=== PATIENT | male | born 1940 | race Caucasian/White ===

== ENCOUNTER 2019-04-14 16:09 | Inpatient (IN) ==
[2019-04-14] MEDS ORDERED: ACETAMINOPHEN 500 MG TABLET PO STA (16:41)
[2019-04-14] MEDS ORDERED: ALBUTEROL/IPRATROPIUM 3 ML NEB RESP TX STA (16:41)
[2019-04-14 17:22] LABS: Basophils % 0.1 % (0.0-0.8); Eosinophils # 0.1 10*3/uL (0.0-0.87); Eosinophils % 0.9 % (0.00-10.9); Hematocrit 40.9 VOL% (42.0-52.0); Immature Granulocytes % 0.4 %; Immature Granulocytes Absolute 0.05 #; Lymphocytes # 0.2 10*3/uL (1.4-4.0); Lymphocytes % 1.3 % (21.2-54.2); Mean Corpuscular HGB Conc 31.8 GM/DL (32-36); Mean Corpuscular Volume 85.2 FL (87-102); Mean Platelet Volume 12.2 FL (9.6-12.0); Monocytes % 4.1 % (1.7-12.7); Neutrophils % 93.2 % (38.7-73.9); Platelet Count 105 T/CUMM (130-400); Red Cell Distribution Width 14.6 % (9.3-17.3); White Blood Count 12.7 T/CUMM (4-12)
[2019-04-14 17:38] LABS: Albumin 3.5 G/DL (3.4-5.0); Bilirubin,Total 0.6 MG/DL (0.2-1.0); Calcium 8.3 MG/DL (8.5-10.1); Osmolality,Calculated 293.7 MOS/KG (273-304); Total Protein 6.7 G/DL (6.4-8.3)
[2019-04-14 19:22] LABS: Eosinophils 1 % (0-10); Lymphocytes 2 % (20-55); Platelet Estimate Adequate; Segmented Neutrophils 96 % (50-85); Total Cells Counted 100
[2019-04-14 19:23] LABS: Anisocytosis 1+; Hypochromasia 2+; Microcytosis 1+; Ovalocytes 1+; Poikilocytosis Slight
[2019-04-14 20:14] LABS: Apearance,Urine CLOUDY (Clear); Bilirubin,Urine Negative (Negative); Blood, Urine Negative (Negative); Glucose,Urine (UA) Negative (Negative); Hyaline Casts,Urine 12 /LPF (0-3); Ketones,Urine Negative (Negative); Mucus,Urine Occasional /LPF (Occasional); Nitrite,Urine Negative (Negative); Protein,Urine 100 MG/DL; RBC,Urine 3 /HPF (0-4); Squamous Epithelial Cell,Urine Occasional /HPF (0-10); Urine Specific Gravity 1.018 (1.001-1.035); WBC,Urine 28 /HPF (0-6)
[2019-04-14 20:15] LABS: Urine Color Yellow (Yellow)
[2019-04-14] MEDS ORDERED: cefTRIAXone 1,000 MG in SODIUM CHLORIDE 0.9% 100 ML IV STA (20:29)
[2019-04-14] MEDS ORDERED: LEVOFLOXACIN INJ 500 MG in PREMIX 1 EACH IV STA (20:30)
[2019-04-14] MEDS ORDERED: ONDANSETRON 4 MG/2 ML VIAL IV PRN (21:01)
[2019-04-14] MEDS ORDERED: NICOTINE 21 MG/24 HR PATCH TRANSDERM PRN (21:01)
[2019-04-14] MEDS: SODIUM CHLORIDE 0.9% 1,000 ML IV SCH (21:39)
[2019-04-15] MEDS: metroNIDAZOLE INJ 500 MG in PREMIX 1 EACH IV SCH ×3 (01:20→22:28)
[2019-04-15] MEDS: ALBUTEROL/IPRATROPIUM 3 ML NEB RESP TX SCH ×4 (01:54→19:26)
[2019-04-15] MEDS: AZITHROMYCIN INJ 500 MG in SODIUM CHLORIDE 0.9% 250 ML IV SCH ×2 (02:19→21:39)
[2019-04-15] MEDS: ACETAMINOPHEN 325 MG TABLET PO PRN ×2 (02:24→15:20)
[2019-04-15] MEDS: SODIUM CHLORIDE 0.9% 1,000 ML IV SCH ×2 (05:48→15:31)
[2019-04-15 05:59] LABS: Albumin 2.7 G/DL (3.4-5.0); Bilirubin,Total 1.1 MG/DL (0.2-1.0); Calcium 7.9 MG/DL (8.5-10.1); Osmolality,Calculated 295.7 MOS/KG (273-304); Total Protein 5.8 G/DL (6.4-8.3)
[2019-04-15] MEDS ORDERED: Fluticasone Furoate-Vilanterol [Breo Ellipta] 1 inh INH SCH (09:00)
[2019-04-15] MEDS: MAGNESIUM CHLORIDE 64 MG TABLET PO SCH ×2 (09:15→21:41)
[2019-04-15] MEDS: cefTRIAXone 1,000 MG in SYRINGE 1 EACH IV SCH (20:55)
[2019-04-15] MEDS ORDERED: ALPRAZolam 0.5 MG TABLET PO ONE (21:14)
[2019-04-15] MEDS ORDERED: LEVOFLOXACIN INJ 500 MG in PREMIX 1 EACH IV SCH (21:30)
[2019-04-16] MEDS: ALBUTEROL/IPRATROPIUM 3 ML NEB RESP TX SCH ×4 (00:29→20:40)
[2019-04-16 05:34] LABS: Basophils % 0.1 % (0.0-0.8); Eosinophils # 0.1 10*3/uL (0.0-0.87); Eosinophils % 0.7 % (0.00-10.9); Hematocrit 34.1 VOL% (42.0-52.0); Hemoglobin 10.7 GM/DL (14.0-18.0); Immature Granulocytes % 0.4 %; Immature Granulocytes Absolute 0.04 #; Lymphocytes # 0.9 10*3/uL (1.4-4.0); Lymphocytes % 9.6 % (21.2-54.2); Mean Corpuscular HGB Conc 31.4 GM/DL (32-36); Mean Corpuscular Volume 86.1 FL (87-102); Mean Platelet Volume 13.5 FL (9.6-12.0); Monocytes % 9.8 % (1.7-12.7); Neutrophils % 79.4 % (38.7-73.9); Platelet Count 82 T/CUMM (130-400); Red Blood Count 3.96 MC/CUMM (3.8-5.5); White Blood Count 9.6 T/CUMM (4-12)
[2019-04-16] MEDS ORDERED: ALBUTEROL 2.5 MG/3 ML NEB RESP TX PRN (05:39)
[2019-04-16 05:52] LABS: Osmolality,Calculated 290.7 MOS/KG (273-304)
[2019-04-16 06:01] LABS: Hypochromasia Slight; Platelet Estimate Decreased
[2019-04-16] MEDS: methylPREDNISolone SOD SUC 125 MG/2 ML VIAL IV SCH ×3 (09:26→21:51)
[2019-04-16] MEDS: MAGNESIUM CHLORIDE 64 MG TABLET PO SCH ×2 (09:26→21:50)
[2019-04-16] MEDS: SODIUM CHLORIDE 0.9% 1,000 ML IV SCH (09:26)
[2019-04-16] MEDS ORDERED: ALBUTEROL/IPRATROPIUM 3 ML NEB RESP TX PRN (10:44)
[2019-04-16] MEDS ORDERED: ALBUTEROL/IPRATROPIUM 3 ML NEB RESP TX SCH (11:00)
[2019-04-16 11:24] LABS: % Iron Saturation 7.9 % (18-50)
[2019-04-16 11:29] LABS: Folate 19.7 NG/ML (5.4-24.0)
[2019-04-16] MEDS: CLINDAMYCIN INJ 300 MG in PREMIX 1 EACH IV SCH ×2 (13:00→18:51)
[2019-04-16] MEDS: BENZONATATE 100 MG CAPSULE PO SCH ×2 (15:17→21:51)
[2019-04-16] MEDS: cefTRIAXone 1,000 MG in SYRINGE 1 EACH IV SCH (20:58)
[2019-04-16] MEDS: AZITHROMYCIN INJ 500 MG in SODIUM CHLORIDE 0.9% 250 ML IV SCH (21:59)
[2019-04-17] MEDS: CLINDAMYCIN INJ 300 MG in PREMIX 1 EACH IV SCH ×4 (01:04→18:16)
[2019-04-17] MEDS: ALBUTEROL/IPRATROPIUM 3 ML NEB RESP TX SCH ×4 (02:33→19:16)
[2019-04-17 05:39] LABS: Hematocrit 36.5 VOL% (42.0-52.0); Hemoglobin 11.8 GM/DL (14.0-18.0); Immature Granulocytes % 0.5 %; Immature Granulocytes Absolute 0.04 #; Lymphocytes # 0.4 10*3/uL (1.4-4.0); Lymphocytes % 5.6 % (21.2-54.2); Mean Corpuscular HGB Conc 32.3 GM/DL (32-36); Mean Corpuscular Volume 83.5 FL (87-102); Mean Platelet Volume 13.8 FL (9.6-12.0); Monocytes % 2.3 % (1.7-12.7); Neutrophils % 91.6 % (38.7-73.9); Platelet Count 95 T/CUMM (130-400); Red Blood Count 4.37 MC/CUMM (3.8-5.5); Red Cell Distribution Width 14.8 % (9.3-17.3); White Blood Count 7.5 T/CUMM (4-12)
[2019-04-17 06:01] LABS: Calcium 8.7 MG/DL (8.5-10.1); Osmolality,Calculated 288.3 MOS/KG (273-304)
[2019-04-17 06:27] LABS: Albumin 2.7 G/DL (3.4-5.0); Bilirubin,Total 0.4 MG/DL (0.2-1.0); Calcium 8.6 MG/DL (8.5-10.1); Osmolality,Calculated 284.4 MOS/KG (273-304); Total Protein 6.1 G/DL (6.4-8.3)
[2019-04-17 06:45] LABS: Lymphocytes 2 % (20-55); Platelet Estimate Decreased; Polychromasia Few; Segmented Neutrophils 94 % (50-85); Total Cells Counted 100
[2019-04-17] MEDS ORDERED: POLYETHYLENE GLYCOL POWDER 17 GM PACK PO PRN (08:35)
[2019-04-17] MEDS ORDERED: PANTOPRAZOLE 40 MG TABLET PO SCH (09:00)
[2019-04-17] MEDS: ENALAPRIL 5 MG TABLET PO SCH (09:14)
[2019-04-17] MEDS: FUROSEMIDE 40 MG TABLET PO SCH (09:14)
[2019-04-17] MEDS: MAGNESIUM CHLORIDE 64 MG TABLET PO SCH ×2 (09:14→20:45)
[2019-04-17] MEDS: BENZONATATE 100 MG CAPSULE PO SCH ×3 (09:14→20:44)
[2019-04-17] MEDS: carvediloL 12.5 MG TABLET PO SCH ×2 (09:24→20:44)
[2019-04-17] MEDS: methylPREDNISolone SOD SUC 125 MG/2 ML VIAL IV SCH ×3 (09:28→20:43)
[2019-04-17] MEDS ORDERED: POLYETHYLENE GLYCOL POWDER 17 GM PACK PO SCH (11:30)
[2019-04-17] MEDS: FERROUS SULFATE 325 MG TABLET PO SCH ×2 (11:49→20:45)
[2019-04-17] MEDS: AZITHROMYCIN INJ 500 MG in SODIUM CHLORIDE 0.9% 250 ML IV SCH (20:43)
[2019-04-17] MEDS: cefTRIAXone 1,000 MG in SYRINGE 1 EACH IV SCH (20:43)
[2019-04-17] MEDS: ALPRAZolam 0.5 MG TABLET PO SCH (20:44)
[2019-04-17] MEDS: FEXOFENADINE 180 MG TABLET PO SCH (20:45)
[2019-04-18] MEDS: CLINDAMYCIN INJ 300 MG in PREMIX 1 EACH IV SCH ×5 (00:04→22:30)
[2019-04-18] MEDS: ALBUTEROL/IPRATROPIUM 3 ML NEB RESP TX SCH ×4 (00:40→21:22)
[2019-04-18 06:54] LABS: Hematocrit 34.4 VOL% (42.0-52.0); Hemoglobin 11.4 GM/DL (14.0-18.0); Immature Granulocytes % 0.3 %; Immature Granulocytes Absolute 0.02 #; Lymphocytes # 0.5 10*3/uL (1.4-4.0); Lymphocytes % 7.1 % (21.2-54.2); Mean Corpuscular HGB Conc 33.1 GM/DL (32-36); Mean Corpuscular Volume 82.7 FL (87-102); Mean Platelet Volume 13.4 FL (9.6-12.0); Monocytes % 3.9 % (1.7-12.7); Neutrophils % 88.7 % (38.7-73.9); Platelet Count 105 T/CUMM (130-400); Red Blood Count 4.16 MC/CUMM (3.8-5.5); Red Cell Distribution Width 14.7 % (9.3-17.3); White Blood Count 6.7 T/CUMM (4-12)
[2019-04-18 07:12] LABS: Calcium 8.4 MG/DL (8.5-10.1); Osmolality,Calculated 291.1 MOS/KG (273-304)
[2019-04-18] MEDS: ENALAPRIL 5 MG TABLET PO SCH (08:22)
[2019-04-18] MEDS: FEXOFENADINE 180 MG TABLET PO SCH (08:22)
[2019-04-18] MEDS: FUROSEMIDE 40 MG TABLET PO SCH (08:22)
[2019-04-18] MEDS: MAGNESIUM CHLORIDE 64 MG TABLET PO SCH ×2 (08:22→20:48)
[2019-04-18] MEDS: DEXILANT PO SCH (08:22)
[2019-04-18] MEDS: methylPREDNISolone SOD SUC 125 MG/2 ML VIAL IV SCH ×3 (08:23→20:47)
[2019-04-18] MEDS: carvediloL 12.5 MG TABLET PO SCH ×2 (08:23→20:49)
[2019-04-18] MEDS: BENZONATATE 100 MG CAPSULE PO SCH ×3 (08:23→20:48)
[2019-04-18] MEDS: FERROUS SULFATE 325 MG TABLET PO SCH ×2 (08:23→20:50)
[2019-04-18] MEDS: FLUCONAZOLE INJ 100 MG in IV BAG 1 EACH IV SCH (13:23)
[2019-04-18] MEDS: POLYETHYLENE GLYCOL POWDER 17 GM PACK PO SCH (20:47)
[2019-04-18] MEDS: cefTRIAXone 1,000 MG in SYRINGE 1 EACH IV SCH (20:47)
[2019-04-18] MEDS: AZITHROMYCIN INJ 500 MG in SODIUM CHLORIDE 0.9% 250 ML IV SCH (20:48)
[2019-04-18] MEDS: ALPRAZolam 0.5 MG TABLET PO SCH (20:48)
[2019-04-19] MEDS: ALBUTEROL/IPRATROPIUM 3 ML NEB RESP TX SCH ×3 (00:53→12:30)
[2019-04-19] MEDS: CLINDAMYCIN INJ 300 MG in PREMIX 1 EACH IV SCH ×4 (04:01→22:50)
[2019-04-19 06:51] LABS: Hematocrit 34.8 VOL% (42.0-52.0); Hemoglobin 11.4 GM/DL (14.0-18.0); Immature Granulocytes % 0.5 %; Immature Granulocytes Absolute 0.03 #; Lymphocytes # 0.4 10*3/uL (1.4-4.0); Lymphocytes % 7.6 % (21.2-54.2); Mean Corpuscular HGB Conc 32.8 GM/DL (32-36); Mean Corpuscular Volume 82.5 FL (87-102); Mean Platelet Volume 12.3 FL (9.6-12.0); Monocytes % 4.4 % (1.7-12.7); Neutrophils % 87.5 % (38.7-73.9); Platelet Count 110 T/CUMM (130-400); Red Blood Count 4.22 MC/CUMM (3.8-5.5); Red Cell Distribution Width 14.5 % (9.3-17.3); White Blood Count 5.7 T/CUMM (4-12)
[2019-04-19] MEDS: FERROUS SULFATE 325 MG TABLET PO SCH ×2 (09:01→21:01)
[2019-04-19] MEDS: BENZONATATE 100 MG CAPSULE PO SCH ×3 (09:01→21:02)
[2019-04-19] MEDS: FEXOFENADINE 180 MG TABLET PO SCH (09:01)
[2019-04-19] MEDS: methylPREDNISolone SOD SUC 125 MG/2 ML VIAL IV SCH ×3 (09:01→20:59)
[2019-04-19] MEDS: DEXILANT PO SCH (09:01)
[2019-04-19] MEDS: carvediloL 12.5 MG TABLET PO SCH ×2 (09:01→21:01)
[2019-04-19] MEDS: FUROSEMIDE 40 MG TABLET PO SCH (09:01)
[2019-04-19] MEDS: ENALAPRIL 5 MG TABLET PO SCH (09:01)
[2019-04-19] MEDS: MAGNESIUM CHLORIDE 64 MG TABLET PO SCH ×2 (09:01→21:00)
[2019-04-19] MEDS: FLUCONAZOLE INJ 100 MG in IV BAG 1 EACH IV SCH (13:02)
[2019-04-19] MEDS: cefTRIAXone 1,000 MG in SYRINGE 1 EACH IV SCH (20:59)
[2019-04-19] MEDS: POLYETHYLENE GLYCOL POWDER 17 GM PACK PO SCH (20:59)
[2019-04-19] MEDS: AZITHROMYCIN INJ 500 MG in SODIUM CHLORIDE 0.9% 250 ML IV SCH (21:00)
[2019-04-19] MEDS: ALPRAZolam 0.5 MG TABLET PO SCH (21:00)
[2019-04-20] MEDS: ALBUTEROL/IPRATROPIUM 3 ML NEB RESP TX SCH ×5 (01:39→19:21)
[2019-04-20] MEDS: CLINDAMYCIN INJ 300 MG in PREMIX 1 EACH IV SCH ×4 (03:15→23:31)
[2019-04-20 05:37] LABS: Basophils % 0.2 % (0.0-0.8); Hematocrit 35.3 VOL% (42.0-52.0); Hemoglobin 11.5 GM/DL (14.0-18.0); Immature Granulocytes % 0.6 %; Immature Granulocytes Absolute 0.03 #; Lymphocytes # 0.4 10*3/uL (1.4-4.0); Lymphocytes % 7.1 % (21.2-54.2); Mean Corpuscular HGB Conc 32.6 GM/DL (32-36); Mean Corpuscular Volume 82.1 FL (87-102); Mean Platelet Volume 12.6 FL (9.6-12.0); Monocytes % 4.3 % (1.7-12.7); Neutrophils % 87.8 % (38.7-73.9); Platelet Count 115 T/CUMM (130-400); Red Cell Distribution Width 14.5 % (9.3-17.3); White Blood Count 4.9 T/CUMM (4-12)
[2019-04-20 05:59] LABS: Calcium 7.7 MG/DL (8.5-10.1); Osmolality,Calculated 293.3 MOS/KG (273-304)
[2019-04-20] MEDS: DEXILANT PO SCH (08:02)
[2019-04-20] MEDS: FERROUS SULFATE 325 MG TABLET PO SCH ×2 (10:07→20:58)
[2019-04-20] MEDS: carvediloL 12.5 MG TABLET PO SCH ×2 (10:07→20:59)
[2019-04-20] MEDS: FEXOFENADINE 180 MG TABLET PO SCH (10:07)
[2019-04-20] MEDS: FUROSEMIDE 40 MG TABLET PO SCH (10:07)
[2019-04-20] MEDS: BENZONATATE 100 MG CAPSULE PO SCH ×3 (10:08→20:57)
[2019-04-20] MEDS: ENALAPRIL 5 MG TABLET PO SCH (10:08)
[2019-04-20] MEDS: MAGNESIUM CHLORIDE 64 MG TABLET PO SCH ×2 (10:08→20:58)
[2019-04-20] MEDS: methylPREDNISolone SOD SUC 125 MG/2 ML VIAL IV SCH ×3 (11:30→20:56)
[2019-04-20] MEDS: FLUCONAZOLE INJ 100 MG in IV BAG 1 EACH IV SCH (13:23)
[2019-04-20] MEDS ORDERED: POTASSIUM CHLORIDE 20 MEQ TABLET PO PRN (13:45)
[2019-04-20] MEDS: cefTRIAXone 1,000 MG in SYRINGE 1 EACH IV SCH (20:56)
[2019-04-20] MEDS: AZITHROMYCIN INJ 500 MG in SODIUM CHLORIDE 0.9% 250 ML IV SCH (20:56)
[2019-04-20] MEDS: POLYETHYLENE GLYCOL POWDER 17 GM PACK PO SCH (20:57)
[2019-04-20] MEDS: ALPRAZolam 0.5 MG TABLET PO SCH (20:58)
[2019-04-21] MEDS: ALBUTEROL/IPRATROPIUM 3 ML NEB RESP TX SCH ×4 (00:06→20:26)
[2019-04-21] MEDS: CLINDAMYCIN INJ 300 MG in PREMIX 1 EACH IV SCH ×4 (04:59→22:27)
[2019-04-21] MEDS: DEXILANT PO SCH (08:19)
[2019-04-21] MEDS: methylPREDNISolone SOD SUC 125 MG/2 ML VIAL IV SCH ×3 (08:26→21:40)
[2019-04-21] MEDS: carvediloL 12.5 MG TABLET PO SCH ×2 (09:16→21:41)
[2019-04-21] MEDS: FERROUS SULFATE 325 MG TABLET PO SCH ×2 (09:16→21:42)
[2019-04-21] MEDS: FEXOFENADINE 180 MG TABLET PO SCH (09:16)
[2019-04-21] MEDS: MAGNESIUM CHLORIDE 64 MG TABLET PO SCH ×2 (09:17→21:42)
[2019-04-21] MEDS: FUROSEMIDE 40 MG TABLET PO SCH (09:17)
[2019-04-21] MEDS: ENALAPRIL 5 MG TABLET PO SCH (09:18)
[2019-04-21] MEDS: BENZONATATE 100 MG CAPSULE PO SCH ×3 (09:18→21:41)
[2019-04-21] MEDS: FLUCONAZOLE INJ 100 MG in IV BAG 1 EACH IV SCH (12:55)
[2019-04-21] MEDS: cefTRIAXone 1,000 MG in SYRINGE 1 EACH IV SCH (21:39)
[2019-04-21] MEDS: POLYETHYLENE GLYCOL POWDER 17 GM PACK PO SCH (21:40)
[2019-04-21] MEDS: ALPRAZolam 0.5 MG TABLET PO SCH (21:41)
[2019-04-21] MEDS: AZITHROMYCIN INJ 500 MG in SODIUM CHLORIDE 0.9% 250 ML IV SCH (21:41)
[2019-04-22] MEDS: ALBUTEROL/IPRATROPIUM 3 ML NEB RESP TX SCH ×4 (01:33→19:23)
[2019-04-22 04:04] LABS: Basophils % 0.2 % (0.0-0.8); Hematocrit 35.5 VOL% (42.0-52.0); Hemoglobin 11.8 GM/DL (14.0-18.0); Immature Granulocytes % 0.9 %; Immature Granulocytes Absolute 0.05 #; Lymphocytes # 0.3 10*3/uL (1.4-4.0); Lymphocytes % 5.3 % (21.2-54.2); Mean Corpuscular HGB Conc 33.2 GM/DL (32-36); Mean Corpuscular Volume 82.2 FL (87-102); Mean Platelet Volume 12.3 FL (9.6-12.0); Monocytes % 3.3 % (1.7-12.7); Neutrophils % 90.3 % (38.7-73.9); Platelet Count 122 T/CUMM (130-400); Red Blood Count 4.32 MC/CUMM (3.8-5.5); Red Cell Distribution Width 14.5 % (9.3-17.3); White Blood Count 5.4 T/CUMM (4-12)
[2019-04-22] MEDS: CLINDAMYCIN INJ 300 MG in PREMIX 1 EACH IV SCH ×5 (04:11→22:31)
[2019-04-22 04:17] LABS: Calcium 8.1 MG/DL (8.5-10.1)
[2019-04-22] MEDS: methylPREDNISolone SOD SUC 125 MG/2 ML VIAL IV SCH ×3 (08:37→21:18)
[2019-04-22] MEDS: MAGNESIUM CHLORIDE 64 MG TABLET PO SCH ×2 (08:38→21:09)
[2019-04-22] MEDS: FEXOFENADINE 180 MG TABLET PO SCH (08:38)
[2019-04-22] MEDS: DEXILANT PO SCH (08:38)
[2019-04-22] MEDS: BENZONATATE 100 MG CAPSULE PO SCH ×3 (08:38→21:09)
[2019-04-22] MEDS: FUROSEMIDE 40 MG TABLET PO SCH (08:39)
[2019-04-22] MEDS: ENALAPRIL 5 MG TABLET PO SCH (08:39)
[2019-04-22] MEDS: carvediloL 12.5 MG TABLET PO SCH ×2 (08:39→21:10)
[2019-04-22] MEDS: FERROUS SULFATE 325 MG TABLET PO SCH ×2 (08:39→21:10)
[2019-04-22] MEDS: FLUCONAZOLE INJ 100 MG in IV BAG 1 EACH IV SCH (12:36)
[2019-04-22] MEDS: cefTRIAXone 1,000 MG in SYRINGE 1 EACH IV SCH (21:11)
[2019-04-22] MEDS: POLYETHYLENE GLYCOL POWDER 17 GM PACK PO SCH (21:11)
[2019-04-22] MEDS: ALPRAZolam 0.5 MG TABLET PO SCH (22:30)
[2019-04-23] MEDS: ALBUTEROL/IPRATROPIUM 3 ML NEB RESP TX SCH ×2 (00:44→07:20)
[2019-04-23] MEDS: CLINDAMYCIN INJ 300 MG in PREMIX 1 EACH IV SCH ×2 (03:22→09:22)
[2019-04-23] MEDS: carvediloL 12.5 MG TABLET PO SCH (09:22)
[2019-04-23] MEDS: DEXILANT PO SCH (09:22)
[2019-04-23] MEDS: methylPREDNISolone SOD SUC 125 MG/2 ML VIAL IV SCH (09:22)
[2019-04-23] MEDS: ENALAPRIL 5 MG TABLET PO SCH (09:22)
[2019-04-23] MEDS: FEXOFENADINE 180 MG TABLET PO SCH (09:23)
[2019-04-23] MEDS: MAGNESIUM CHLORIDE 64 MG TABLET PO SCH (09:23)
[2019-04-23] MEDS: BENZONATATE 100 MG CAPSULE PO SCH (09:23)
[2019-04-23] MEDS: FERROUS SULFATE 325 MG TABLET PO SCH (09:23)
[2019-04-23] MEDS: FUROSEMIDE 40 MG TABLET PO SCH (09:23)
[2019-04-23 12:31] VITALS: BP 130/85
[2019-04-23] MEDS: FLUCONAZOLE INJ 100 MG in IV BAG 1 EACH IV SCH (12:48)
== END 2019-04-23 13:19 | disposition home health service (06) | DRG 391 ==
LOC: N.ED 16:09 → N.EDINP 16:09 → N.TELEN 22:56 → SUATTDRO 04-16 12:34
PROVIDERS: ADMIT Emergency Medicine; ATTEND Internal Medicine

== ENCOUNTER 2020-10-05 10:55 | Inpatient (IN) ==
[2020-10-05] MEDS ORDERED: ALBUTEROL/IPRATROPIUM 3 ML NEB RESP TX STA (11:16)
[2020-10-05] MEDS ORDERED: methylPREDNISolone SOD SUC 125 MG/2 ML VIAL IV STA (11:16)
[2020-10-05 11:22] LABS: Basophils % 0.1 % (0.0-0.8); Hematocrit 40.8 VOL% (42.0-52.0); Hemoglobin 12.6 GM/DL (14.0-18.0); Immature Granulocytes % 0.4 %; Immature Granulocytes Absolute 0.04 #; Lymphocytes # 1.7 10*3/uL (1.4-4.0); Lymphocytes % 16.5 % (21.2-54.2); Mean Corpuscular HGB Conc 30.9 GM/DL (32-36); Mean Corpuscular Volume 85.9 FL (87-102); Mean Platelet Volume 12.5 FL (9.6-12.0); Monocytes % 11.9 % (1.7-12.7); Neutrophils % 71.1 % (38.7-73.9); Platelet Count 152 T/CUMM (130-400); Red Blood Count 4.75 MC/CUMM (3.8-5.5); Red Cell Distribution Width 14.8 % (9.3-17.3); White Blood Count 10.4 T/CUMM (4-12)
[2020-10-05] MEDS ORDERED: ALBUTEROL NEB SOLN 5 MG/ML 20 ML/BOTTLE CONT NEB SCH (11:30)
[2020-10-05 11:57] LABS: Albumin 3.5 G/DL (3.4-5.0); Bilirubin,Total 0.9 MG/DL (0.2-1.0); Calcium 8.9 MG/DL (8.5-10.1); Osmolality,Calculated 282.4 MOS/KG (273-304); Potassium 4.1 MMOL/L (3.5-5.1); Total Protein 6.9 G/DL (6.4-8.2)
[2020-10-05] MEDS ORDERED: ONDANSETRON 4 MG/2 ML VIAL IV PRN (12:48)
[2020-10-05] MEDS ORDERED: ACETAMINOPHEN 325 MG TABLET PO PRN (12:48)
[2020-10-05] MEDS ORDERED: DEXTROSE 50% 25 GM/50 ML VIAL IV PRN (12:48)
[2020-10-05] MEDS ORDERED: BISACODYL 5 MG TABLET PO PRN (12:48)
[2020-10-05] MEDS ORDERED: guaiFENesin/DM ER 600-30 MG TABLET PO PRN (12:48)
[2020-10-05] MEDS ORDERED: GLUCAGON 1 MG VIAL IM PRN (12:48)
[2020-10-05] MEDS: ENOXAPARIN 40 MG/0.4 ML SYRINGE SUBCUT SCH (13:14)
[2020-10-05] MEDS: methylPREDNISolone SOD SUC 40 MG/1 ML VIAL IV SCH ×2 (13:14→22:40)
[2020-10-05] MEDS: LEVOFLOXACIN INJ 750 MG/150 ML PREMIX IV SCH (13:14)
[2020-10-05] MEDS: SODIUM CHLORIDE 0.9% 1,000 ML IV SCH (14:58)
[2020-10-05] MEDS: ALBUTEROL/IPRATROPIUM 3 ML NEB RESP TX SCH ×3 (15:20→22:35)
[2020-10-05] MEDS ORDERED: FUROSEMIDE 40 MG/4 ML VIAL IV STA (16:09)
[2020-10-05] MEDS: ALPRAZolam 0.5 MG TABLET PO SCH (22:40)
[2020-10-05] MEDS: FEXOFENADINE 180 MG TABLET PO SCH (22:40)
[2020-10-05] MEDS: carvediloL 12.5 MG TABLET PO SCH (22:40)
[2020-10-05] MEDS: FERROUS SULFATE 325 MG TABLET PO SCH (22:40)
[2020-10-06] MEDS: ALBUTEROL/IPRATROPIUM 3 ML NEB RESP TX SCH ×5 (03:55→17:52)
[2020-10-06 05:24] LABS: Basophils % 0.2 % (0.0-0.8); Hematocrit 37.3 VOL% (42.0-52.0); Hemoglobin 11.9 GM/DL (14.0-18.0); Immature Granulocytes % 0.5 %; Immature Granulocytes Absolute 0.03 #; Lymphocytes % 16.9 % (21.2-54.2); Mean Corpuscular HGB Conc 31.9 GM/DL (32-36); Mean Corpuscular Volume 83.8 FL (87-102); Mean Platelet Volume 12.2 FL (9.6-12.0); Neutrophils % 78.4 % (38.7-73.9); Platelet Count 122 T/CUMM (130-400); Red Blood Count 4.45 MC/CUMM (3.8-5.5); Red Cell Distribution Width 14.3 % (9.3-17.3); White Blood Count 5.8 T/CUMM (4-12)
[2020-10-06 05:37] LABS: Calcium 8.3 MG/DL (8.5-10.1); Osmolality,Calculated 286.4 MOS/KG (273-304); Potassium 3.8 MMOL/L (3.5-5.1)
[2020-10-06] MEDS: methylPREDNISolone SOD SUC 40 MG/1 ML VIAL IV SCH ×3 (06:06→20:54)
[2020-10-06] MEDS: SODIUM CHLORIDE 0.9% 1,000 ML IV SCH (06:17)
[2020-10-06] MEDS: FERROUS SULFATE 325 MG TABLET PO SCH ×2 (08:21→20:54)
[2020-10-06] MEDS: PANTOPRAZOLE 40 MG TABLET PO SCH (08:21)
[2020-10-06] MEDS: carvediloL 12.5 MG TABLET PO SCH ×2 (08:21→20:54)
[2020-10-06] MEDS: FUROSEMIDE 40 MG TABLET PO SCH (09:54)
[2020-10-06] MEDS: LEVOFLOXACIN INJ 750 MG/150 ML PREMIX IV SCH (09:54)
[2020-10-06] MEDS: ENOXAPARIN 40 MG/0.4 ML SYRINGE SUBCUT SCH (09:55)
[2020-10-06] MEDS: FLUTICASONE FUROATE VILANTEROL INH SCH (10:10)
[2020-10-06] MEDS: [UNRECOGNIZED DRUG - OTHER] INH SCH (10:10)
[2020-10-06] MEDS ORDERED: POLYETHYLENE GLYCOL POWDER 17 GM PACK PO PRN (10:33)
[2020-10-06] MEDS: ENALAPRIL 5 MG TABLET PO SCH (12:13)
[2020-10-06] MEDS: FEXOFENADINE 180 MG TABLET PO SCH (18:06)
[2020-10-06] MEDS: ALPRAZolam 0.5 MG TABLET PO SCH (20:55)
[2020-10-07] MEDS: ALBUTEROL/IPRATROPIUM 3 ML NEB RESP TX SCH ×7 (01:06→23:50)
[2020-10-07] MEDS: methylPREDNISolone SOD SUC 40 MG/1 ML VIAL IV SCH ×3 (05:37→20:52)
[2020-10-07 05:49] LABS: Hematocrit 39.2 VOL% (42.0-52.0); Hemoglobin 12.3 GM/DL (14.0-18.0); Immature Granulocytes % 0.5 %; Immature Granulocytes Absolute 0.03 #; Lymphocytes % 14.5 % (21.2-54.2); Mean Corpuscular HGB Conc 31.4 GM/DL (32-36); Mean Corpuscular Volume 83.2 FL (87-102); Mean Platelet Volume 12.5 FL (9.6-12.0); Monocytes % 5.4 % (1.7-12.7); Neutrophils % 79.6 % (38.7-73.9); Platelet Count 130 T/CUMM (130-400); Red Blood Count 4.71 MC/CUMM (3.8-5.5); Red Cell Distribution Width 14.1 % (9.3-17.3); White Blood Count 6.6 T/CUMM (4-12)
[2020-10-07 06:28] LABS: Calcium 8.2 MG/DL (8.5-10.1); Osmolality,Calculated 290.4 MOS/KG (273-304); Potassium 3.9 MMOL/L (3.5-5.1)
[2020-10-07 06:31] LABS: Folate 13.15 NG/ML (5.38-24.0)
[2020-10-07] MEDS: FERROUS SULFATE 325 MG TABLET PO SCH ×2 (10:11→20:51)
[2020-10-07] MEDS: ENALAPRIL 5 MG TABLET PO SCH (10:11)
[2020-10-07] MEDS: PANTOPRAZOLE 40 MG TABLET PO SCH (10:11)
[2020-10-07] MEDS: carvediloL 12.5 MG TABLET PO SCH ×2 (10:11→20:52)
[2020-10-07] MEDS: FUROSEMIDE 40 MG TABLET PO SCH (10:11)
[2020-10-07] MEDS: LEVOFLOXACIN INJ 750 MG/150 ML PREMIX IV SCH (10:12)
[2020-10-07] MEDS: ENOXAPARIN 40 MG/0.4 ML SYRINGE SUBCUT SCH (10:12)
[2020-10-07] MEDS: FLUTICASONE FUROATE VILANTEROL INH SCH (14:05)
[2020-10-07] MEDS: [UNRECOGNIZED DRUG - OTHER] INH SCH (14:05)
[2020-10-07] MEDS: FEXOFENADINE 180 MG TABLET PO SCH (20:51)
[2020-10-07] MEDS: ALPRAZolam 0.5 MG TABLET PO SCH (20:51)
[2020-10-08] MEDS: ALBUTEROL/IPRATROPIUM 3 ML NEB RESP TX SCH ×5 (03:14→19:21)
[2020-10-08] MEDS: methylPREDNISolone SOD SUC 40 MG/1 ML VIAL IV SCH ×3 (05:10→21:22)
[2020-10-08 06:28] LABS: Basophils % 0.1 % (0.0-0.8); Hematocrit 39.9 VOL% (42.0-52.0); Hemoglobin 12.8 GM/DL (14.0-18.0); Immature Granulocytes % 0.5 %; Immature Granulocytes Absolute 0.04 #; Lymphocytes # 1.1 10*3/uL (1.4-4.0); Lymphocytes % 14.4 % (21.2-54.2); Mean Corpuscular HGB Conc 32.1 GM/DL (32-36); Mean Corpuscular Volume 82.4 FL (87-102); Monocytes % 5.9 % (1.7-12.7); Neutrophils % 79.1 % (38.7-73.9); Platelet Count 133 T/CUMM (130-400); Red Blood Count 4.84 MC/CUMM (3.8-5.5); Red Cell Distribution Width 14.2 % (9.3-17.3); White Blood Count 7.5 T/CUMM (4-12)
[2020-10-08 06:44] LABS: Calcium 8.3 MG/DL (8.5-10.1); Osmolality,Calculated 290.5 MOS/KG (273-304); Potassium 3.5 MMOL/L (3.5-5.1)
[2020-10-08] MEDS: carvediloL 12.5 MG TABLET PO SCH ×2 (08:51→20:38)
[2020-10-08] MEDS: FUROSEMIDE 40 MG TABLET PO SCH (08:51)
[2020-10-08] MEDS: LEVOFLOXACIN 750 MG TABLET PO SCH (08:51)
[2020-10-08] MEDS: PANTOPRAZOLE 40 MG TABLET PO SCH (08:51)
[2020-10-08] MEDS: CHOLECALCIFEROL 1,000 UNIT TABLET PO SCH (08:51)
[2020-10-08] MEDS: FERROUS SULFATE 325 MG TABLET PO SCH ×2 (08:51→20:38)
[2020-10-08] MEDS: ENALAPRIL 5 MG TABLET PO SCH (08:51)
[2020-10-08] MEDS: ENOXAPARIN 40 MG/0.4 ML SYRINGE SUBCUT SCH (08:53)
[2020-10-08] MEDS: [UNRECOGNIZED DRUG - OTHER] INH SCH (12:21)
[2020-10-08] MEDS: FLUTICASONE FUROATE VILANTEROL INH SCH (12:21)
[2020-10-08] MEDS ORDERED: LACTULOSE 20 GM/30 ML UDCUP PO PRN (15:01)
[2020-10-08] MEDS: FEXOFENADINE 180 MG TABLET PO SCH (20:37)
[2020-10-08] MEDS: ALPRAZolam 0.5 MG TABLET PO SCH (20:38)
[2020-10-09] MEDS: ALBUTEROL/IPRATROPIUM 3 ML NEB RESP TX SCH ×7 (03:20→23:37)
[2020-10-09] MEDS: PANTOPRAZOLE 40 MG TABLET PO SCH (06:06)
[2020-10-09] MEDS: methylPREDNISolone SOD SUC 40 MG/1 ML VIAL IV SCH ×3 (06:06→20:53)
[2020-10-09 06:53] LABS: Basophils % 0.1 % (0.0-0.8); Hematocrit 40.9 VOL% (42.0-52.0); Hemoglobin 13.3 GM/DL (14.0-18.0); Immature Granulocytes % 0.6 %; Immature Granulocytes Absolute 0.05 #; Mean Corpuscular HGB Conc 32.5 GM/DL (32-36); Mean Platelet Volume 12.9 FL (9.6-12.0); Monocytes % 7.1 % (1.7-12.7); Neutrophils % 79.2 % (38.7-73.9); Platelet Count 142 T/CUMM (130-400); Red Blood Count 4.99 MC/CUMM (3.8-5.5); Red Cell Distribution Width 14.3 % (9.3-17.3); White Blood Count 7.8 T/CUMM (4-12)
[2020-10-09 07:11] LABS: Calcium 8.3 MG/DL (8.5-10.1); Osmolality,Calculated 295.4 MOS/KG (273-304); Potassium 3.5 MMOL/L (3.5-5.1)
[2020-10-09] MEDS ORDERED: SODIUM CHLORIDE 0.45% 500 ML IV ONE (10:18)
[2020-10-09] MEDS: FUROSEMIDE 40 MG TABLET PO SCH (10:28)
[2020-10-09] MEDS: CHOLECALCIFEROL 1,000 UNIT TABLET PO SCH (10:28)
[2020-10-09] MEDS: carvediloL 12.5 MG TABLET PO SCH ×2 (10:28→20:53)
[2020-10-09] MEDS: LEVOFLOXACIN 750 MG TABLET PO SCH (10:28)
[2020-10-09] MEDS: ENOXAPARIN 40 MG/0.4 ML SYRINGE SUBCUT SCH (10:28)
[2020-10-09] MEDS: ENALAPRIL 5 MG TABLET PO SCH (10:28)
[2020-10-09] MEDS: FERROUS SULFATE 325 MG TABLET PO SCH ×2 (10:28→20:53)
[2020-10-09] MEDS: [UNRECOGNIZED DRUG - OTHER] INH SCH (11:15)
[2020-10-09] MEDS: FLUTICASONE FUROATE VILANTEROL INH SCH (11:15)
[2020-10-09] MEDS ORDERED: hydrALAZINE 20 MG/1 ML VIAL IV PRN (14:20)
[2020-10-09 15:48] LABS: ABG Base Excess 7.2 MMOL/L (-2.5-2.5); ABG HCO3 30.8 MMOL/L (20-26); ABG Oxygen Saturation 92.6 % (95-100); ABG PCO2 42.1 MM HG (35-48); ABG PH 7.482 (7.35-7.45); ABG PO2 63.8 MM HG (80-95); ABG TCO2 26.9 MMOL/L (23-27)
[2020-10-09] MEDS: ARFORMOTEROL 15 MCG/2 ML NEB RESP TX SCH (19:37)
[2020-10-09] MEDS: BUDESONIDE 0.5 MG/2 ML NEB RESP TX SCH (19:37)
[2020-10-09] MEDS: ALPRAZolam 0.5 MG TABLET PO SCH (20:53)
[2020-10-09] MEDS: FEXOFENADINE 180 MG TABLET PO SCH (20:53)
[2020-10-09] MEDS: ACETYLCYSTEINE 20% 800 MG/4 ML VIAL RESP TX SCH (23:37)
[2020-10-10] MEDS: ALBUTEROL/IPRATROPIUM 3 ML NEB RESP TX SCH ×5 (03:15→19:53)
[2020-10-10] MEDS: methylPREDNISolone SOD SUC 40 MG/1 ML VIAL IV SCH ×3 (04:18→21:41)
[2020-10-10] MEDS: PANTOPRAZOLE 40 MG TABLET PO SCH (06:08)
[2020-10-10] MEDS: BUDESONIDE 0.5 MG/2 ML NEB RESP TX SCH ×2 (07:33→19:53)
[2020-10-10] MEDS: ARFORMOTEROL 15 MCG/2 ML NEB RESP TX SCH ×2 (07:33→19:53)
[2020-10-10] MEDS: ACETYLCYSTEINE 20% 800 MG/4 ML VIAL RESP TX SCH ×2 (07:33→16:18)
[2020-10-10 08:00] LABS: Hematocrit 41.6 VOL% (42.0-52.0); Hemoglobin 13.3 GM/DL (14.0-18.0); Immature Granulocytes % 0.5 %; Immature Granulocytes Absolute 0.03 #; Lymphocytes # 0.8 10*3/uL (1.4-4.0); Lymphocytes % 12.4 % (21.2-54.2); Mean Corpuscular Volume 82.7 FL (87-102); Mean Platelet Volume 12.9 FL (9.6-12.0); Monocytes % 5.6 % (1.7-12.7); Neutrophils % 81.5 % (38.7-73.9); Platelet Count 130 T/CUMM (130-400); Red Blood Count 5.03 MC/CUMM (3.8-5.5); Red Cell Distribution Width 14.2 % (9.3-17.3); White Blood Count 6.5 T/CUMM (4-12)
[2020-10-10] MEDS ORDERED: LACTULOSE 20 GM/30 ML UDCUP PO PRN (08:00)
[2020-10-10 08:17] LABS: Calcium 8.3 MG/DL (8.5-10.1); Osmolality,Calculated 297.3 MOS/KG (273-304); Potassium 4.1 MMOL/L (3.5-5.1)
[2020-10-10] MEDS: ENOXAPARIN 40 MG/0.4 ML SYRINGE SUBCUT SCH (09:22)
[2020-10-10] MEDS: NYSTATIN 500,000 UNIT/5 ML UDCUP SWISH/SWAL SCH ×4 (09:22→21:38)
[2020-10-10] MEDS: CHOLECALCIFEROL 1,000 UNIT TABLET PO SCH (09:22)
[2020-10-10] MEDS: carvediloL 12.5 MG TABLET PO SCH ×2 (09:23→21:38)
[2020-10-10] MEDS: FUROSEMIDE 40 MG TABLET PO SCH (09:23)
[2020-10-10] MEDS: FERROUS SULFATE 325 MG TABLET PO SCH ×2 (09:23→21:39)
[2020-10-10] MEDS: FLUTICASONE FUROATE VILANTEROL INH SCH (11:14)
[2020-10-10] MEDS: [UNRECOGNIZED DRUG - OTHER] INH SCH (11:14)
[2020-10-10] MEDS: ALPRAZolam 0.5 MG TABLET PO SCH (21:38)
[2020-10-10] MEDS: FEXOFENADINE 180 MG TABLET PO SCH (21:39)
[2020-10-11] MEDS: ALBUTEROL/IPRATROPIUM 3 ML NEB RESP TX SCH ×6 (00:05→19:26)
[2020-10-11] MEDS: ACETYLCYSTEINE 20% 800 MG/4 ML VIAL RESP TX SCH ×3 (00:05→14:01)
[2020-10-11] MEDS: methylPREDNISolone SOD SUC 40 MG/1 ML VIAL IV SCH ×2 (05:06→14:47)
[2020-10-11 06:03] LABS: Hematocrit 40.8 VOL% (42.0-52.0); Hemoglobin 13.2 GM/DL (14.0-18.0); Immature Granulocytes % 0.6 %; Immature Granulocytes Absolute 0.04 #; Lymphocytes # 0.9 10*3/uL (1.4-4.0); Lymphocytes % 13.6 % (21.2-54.2); Mean Corpuscular HGB Conc 32.4 GM/DL (32-36); Mean Corpuscular Volume 83.3 FL (87-102); Mean Platelet Volume 12.7 FL (9.6-12.0); Monocytes % 5.5 % (1.7-12.7); Neutrophils % 80.3 % (38.7-73.9); Platelet Count 116 T/CUMM (130-400); Red Cell Distribution Width 14.1 % (9.3-17.3); White Blood Count 6.9 T/CUMM (4-12)
[2020-10-11 06:33] LABS: Calcium 8.4 MG/DL (8.5-10.1); Osmolality,Calculated 291.5 MOS/KG (273-304); Potassium 3.9 MMOL/L (3.5-5.1)
[2020-10-11] MEDS: ARFORMOTEROL 15 MCG/2 ML NEB RESP TX SCH ×2 (07:29→19:26)
[2020-10-11] MEDS: BUDESONIDE 0.5 MG/2 ML NEB RESP TX SCH ×2 (07:29→19:26)
[2020-10-11] MEDS: PANTOPRAZOLE 40 MG TABLET PO SCH (08:07)
[2020-10-11] MEDS: ENOXAPARIN 40 MG/0.4 ML SYRINGE SUBCUT SCH (08:53)
[2020-10-11] MEDS: FERROUS SULFATE 325 MG TABLET PO SCH ×2 (08:54→20:12)
[2020-10-11] MEDS: NYSTATIN 500,000 UNIT/5 ML UDCUP SWISH/SWAL SCH ×4 (08:54→20:12)
[2020-10-11] MEDS: CHOLECALCIFEROL 1,000 UNIT TABLET PO SCH (08:54)
[2020-10-11] MEDS: FUROSEMIDE 40 MG TABLET PO SCH (08:54)
[2020-10-11] MEDS: carvediloL 12.5 MG TABLET PO SCH ×2 (08:54→20:12)
[2020-10-11] MEDS: FLUTICASONE FUROATE VILANTEROL INH SCH (14:47)
[2020-10-11] MEDS: [UNRECOGNIZED DRUG - OTHER] INH SCH (14:47)
[2020-10-11] MEDS: FEXOFENADINE 180 MG TABLET PO SCH (19:14)
[2020-10-11] MEDS: predniSONE 20 MG TABLET PO SCH (20:12)
[2020-10-11] MEDS: ALPRAZolam 0.5 MG TABLET PO SCH (20:12)
[2020-10-12] MEDS: ALBUTEROL/IPRATROPIUM 3 ML NEB RESP TX SCH ×2 (03:03→04:42)
[2020-10-12] MEDS: PANTOPRAZOLE 40 MG TABLET PO SCH (06:47)
[2020-10-12] MEDS: BUDESONIDE 0.5 MG/2 ML NEB RESP TX SCH (07:20)
[2020-10-12] MEDS: ARFORMOTEROL 15 MCG/2 ML NEB RESP TX SCH (07:20)
[2020-10-12] MEDS: NYSTATIN 500,000 UNIT/5 ML UDCUP SWISH/SWAL SCH (09:49)
[2020-10-12] MEDS: CHOLECALCIFEROL 1,000 UNIT TABLET PO SCH (09:49)
[2020-10-12] MEDS: carvediloL 12.5 MG TABLET PO SCH (09:49)
[2020-10-12] MEDS: predniSONE 20 MG TABLET PO SCH (09:50)
[2020-10-12] MEDS: ENOXAPARIN 40 MG/0.4 ML SYRINGE SUBCUT SCH (09:50)
[2020-10-12] MEDS: FERROUS SULFATE 325 MG TABLET PO SCH (09:50)
[2020-10-12] MEDS: FUROSEMIDE 40 MG TABLET PO SCH (09:50)
[2020-10-12 11:59] VITALS: BP 123/80
== END 2020-10-12 12:30 | disposition swing bed (61) | DRG 191 ==
LOC: N.ED 10:55 → N.EDINP 12:48 → N.5E 16:21
PROVIDERS: ADMIT Internal Medicine; ATTEND Internal Medicine